=== PATIENT | female | born 1985 | race Two or more races ===

== ENCOUNTER 2019-12-21 14:00 | Emergency (ER) | payer OTHER ==
[~2019-12-21] VITALS: Ht 167.6 cm; Wt 94.8 kg
[~2019-12-21 14:00] MED LIST: ATARAX25 MG PO; CIPRO750 MG PO; CLONOPIN; FOLIC ACID1 MG PO; INTESTINEX680 MG PO; IRON1TAB4 PO; IRON325 ( 65 ) PO; LEVAQUIN750 MG PO; MUCINEX D ER 61 EACH PO; MUCINEX D1 TAB.SR . PO; NABUMETONE750 MG PO; NEURONTIN800 MG PO; PROZAC10 MG PO; SYNTHROID75 MCG; ZANTAC150 M3 PO; ZYRTEC10 M3 PO; [UNRECOGNIZED DRUG - OTHER]
[2019-12-21] MEDS ORDERED: COZAAR50 MG (14:38)
== END 2019-12-21 19:09 | disposition home or self-care (01) ==
LOC: ER 14:00
DX: L03.312 Cellulitis of back [any part except buttock and flank] (principal); M51.26 Other intervertebral disc displacement, lumbar region; L29.8 Other pruritus; T36.1X5A Adverse effect of cephalosporins and other beta-lactam antibiotics, initial encounter; Y92.538 Other ambulatory health services establishments as the place of occurrence of the external cause

== ENCOUNTER 2020-09-28 17:45 | Emergency (ER) | payer OTHER ==
[~2020-09-28] VITALS: Ht 167.6 cm; Wt 100.7 kg
[~2020-09-28 17:45] MED LIST changes: +COZAAR50 MG
== END 2020-09-28 22:33 | disposition home or self-care (01) ==
LOC: ER 17:45
DX: N39.0 Urinary tract infection, site not specified (principal); R30.0 Dysuria

== ENCOUNTER 2020-10-02 23:18 | Emergency (ER) | payer OTHER ==
[~2020-10-02] VITALS: Ht 167.6 cm; Wt 101.6 kg
[2020-10-03] MEDS ORDERED: MACRODANTIN100 M1 PO (07:01)
[2020-10-03] MEDS ORDERED: ACETAMINOPHEN650 M2 PO (07:01)
== END 2020-10-03 07:16 | disposition home or self-care (01) ==
LOC: ER 23:18
DX: A90 Dengue fever [classical dengue] (principal); N39.0 Urinary tract infection, site not specified; Z03.818 Encounter for observation for suspected exposure to other biological agents ruled out; R06.02 Shortness of breath

== ENCOUNTER 2023-01-03 16:08 | Emergency (ER) | payer OTHER ==
[~2023-01-03] VITALS: Ht 167.6 cm; Wt 104.3 kg
[~2023-01-03 16:08] MED LIST changes: +ACETAMINOPHEN650 M2 PO; +MACRODANTIN100 M1 PO
== END 2023-01-03 19:42 | disposition home or self-care (01) ==
LOC: ER 16:08
DX: M54.9 Dorsalgia, unspecified (principal); Z88.2 Allergy status to sulfonamides

== ENCOUNTER 2023-05-01 17:38 | Emergency (ER) | payer OTHER ==
[~2023-05-01] VITALS: Ht 167.6 cm; Wt 99.8 kg
[2023-05-01] MEDS ORDERED: ZANAFLEX2 M1 PO (21:35)
== END 2023-05-01 22:06 | disposition home or self-care (01) ==
LOC: ER 17:38
DX: M54.89 Other dorsalgia (principal); B34.9 Viral infection, unspecified; Z88.8 Allergy status to other drugs, medicaments and biological substances